=== PATIENT | male | born 1960 | race Caucasian/White ===

== ENCOUNTER → 2023-07-07 | Outpatient (CLI) | payer BC | END | disposition home or self-care (01) | LOC: MRI 15:23 | PROVIDERS: ATTEND Psychiatry & Neurology Neurology | DX: M47.812 Spondylosis without myelopathy or radiculopathy, cervical region (principal); M25.78 Osteophyte, vertebrae; M48.02 Spinal stenosis, cervical region; I67.82 Cerebral ischemia; I67.89 Other cerebrovascular disease; I69.10 Unspecified sequelae of nontraumatic intracerebral hemorrhage; R47.1 Dysarthria and anarthria | CPT/HCPCS: 70551; 72141 ==